=== PATIENT | male | born 1995 ===

== ENCOUNTER 2022-08-06 20:13 | Emergency (ER) | payer OTHER ==
[~2022-08-06] VITALS: Ht 180.3 cm; Wt 79.4 kg
--- NOTE | 2022-08-06 20:24 | NUR ---
Dr. Garcia at bedside for MSE.
[2022-08-06] MEDS ORDERED: HYDROMORPHONE 2 MG/1 ML DISP.SYRIN ONE (20:29)
[2022-08-06] MEDS ORDERED: ONDANSETRON ODT 4 MG TAB.RAPDIS ONE (20:29)
[2022-08-06] MEDS ORDERED: KETOROLAC TROMETHAMINE 60 MG INJ IM ONE ×2 (20:29→20:30)
[2022-08-06] MEDS ORDERED: ONDANSETRON HCL 4 MG TABLET PO ONE (20:30)
[2022-08-06] MEDS ORDERED: HYDROMORPHONE 1 MG/1 ML DISP.SYRIN IM ONE (20:30)
[2022-08-06] MEDS ORDERED: OXYC-128 PO (21:43)
[2022-08-06] MEDS ORDERED: ONDA4TAB5 PO (22:08)
--- NOTE | 2022-08-06 22:17 | NUR ---
Patient discharged to home in stable condition. Written and verbal after care instructions given. Patient verbalizes understanding of instructions. Stressed follow up or return to ER for worsening s/s. Patient out of ER via wheelchair, no acute signs of distress, VSS, all belongings taken, provided with copies of xray results, instructed not to drive, to be driven home by family via private vehicle.
[2022-08-06 22:18] VITALS: BP 124/70
== END 2022-08-06 22:18 | disposition home or self-care (01) ==
LOC: ER 20:15
DX: S70.02XA Contusion of left hip, initial encounter (principal); S09.90XA Unspecified injury of head, initial encounter; S70.12XA Contusion of left thigh, initial encounter; V00.141A Fall from scooter (nonmotorized), initial encounter; Y93.89 Activity, other specified; Y92.89 Other specified places as the place of occurrence of the external cause; S00.81XA Abrasion of other part of head, initial encounter; S00.01XA Abrasion of scalp, initial encounter
CPT/HCPCS: 99284; 73502; 96372 ×2; J1885; J1170; A4663; Q0162